=== PATIENT | female | born 1955 | race Caucasian/White ===

== ENCOUNTER → 2017-05-02 | Outpatient (CLI) | payer OTHER ==
[2017-05-02 13:03] LABS: URINE APPEARANCE CLEAR (CLEAR); URINE BILIRUBIN NEG (NEG); URINE COLOR YELLOW; URINE EPITHELIAL CELL AUTO 20-30 /lpf (0-5); URINE NITRITE NEG (NEG); URINE PH 5.5 (4.5-7.5); URINE SPECIFIC GRAVITY 1.021 (1.000-1.030); UROBILINOGEN NEG (NEG)
[2017-05-02 13:09] LABS: MANUAL MICROSCOPIC REQUIRED? NO; REVIEW REQ? NO
[2017-05-02 13:14] LABS: BLOOD UREA NITROGEN 29 mg/dl (7-18); BUN/CREATININE RATIO 26.4 (10-20); CALCIUM 9.2 mg/dl (8.5-10.1); CARBON DIOXIDE 21 mmol/L (21-32); CHLORIDE 106 mmol/L (98-107); GLUCOSE 256 mg/dl (70-99); POTASSIUM 4.7 mmol/L (3.5-5.1); SODIUM 137 mmol/L (136-145)
[2017-05-02 13:35] LABS: URINE PROTIEN/CREAT RATIO 4.9 (0-0.2); URINE TOTAL PROTEIN 207.2 mg/dl (0-11.9)
== END | disposition home or self-care (01) ==
LOC: C.LABMFLN 10:16
PROVIDERS: ATTEND Internal Medicine Nephrology
DX: I10 Essential (primary) hypertension (principal)

== ENCOUNTER → 2017-06-27 | Outpatient (CLI) | payer OTHER ==
[2017-06-27 14:01] LABS: ESTIMATED AVERAGE GLUCOSE 163 mg/dl; HA1C FLAG Normal (Normal)
[2017-06-27 14:28] LABS: ALT/SGPT 20 U/L (12-78); BLOOD UREA NITROGEN 31 mg/dl (7-18); BUN/CREATININE RATIO 28.1 (10-20); CALCIUM 9.2 mg/dl (8.5-10.1); CARBON DIOXIDE 20 mmol/L (21-32); CHLORIDE 111 mmol/L (98-107); CHOLESTEROL 145 mg/dl (0-200); GLUCOSE 135 mg/dl (70-99); POTASSIUM 5.4 mmol/L (3.5-5.1); SODIUM 139 mmol/L (136-145)
[2017-06-27 14:35] LABS: CHOLESTEROL/HDL RATIO 2.7; HDL CHOLESTEROL 54 mg/dl; TRIGLYCERIDES 168 mg/dl (0-150); VERY LOW DENSITY LIPOPROT CALC 34 mg/dl
== END | disposition home or self-care (01) ==
LOC: C.LABMFLN 07:05
PROVIDERS: ATTEND Family Medicine
DX: E11.9 Type 2 diabetes mellitus without complications (principal); I10 Essential (primary) hypertension

== ENCOUNTER → 2017-07-02 | Outpatient (CLI) | payer OTHER ==
--- NOTE | 2017-07-03 16:02 | MAMMOGRAPHY REPORT ---
BILATERAL DIGITAL SCREENING MAMMOGRAM TOMOSYNTHESIS WITH CAD: 07/02/2017 CLINICAL HISTORY: Routine screening. Patient has no complaints. TECHNIQUE: Breast tomosynthesis in addition to standard 2D mammography was performed. Current study was also evaluated with a Computer Aided Detection (CAD) system. COMPARISON: Comparison is made to exams dated: 06/27/2016 mammogram, 06/24/2015 mammogram, 06/22/2014 m ammogram, 06/15/2013 mammogram, 06/13/2012 mammogram, and 06/12/2011 mammogram - [facility] er. BREAST COMPOSITION: There are scattered areas of fibroglandular density in both breasts. FINDINGS: There are minimal vascular calcifications in the breasts. Stable asymmetry in the lateral right breast. No suspicious mass, architectural distortion or cluster of microcalcifications is seen . IMPRESSION: ACR BI-RADS CATEGORY 1: NEGATIVE There is no mammographic evidence of malignancy. A 1 year screening mammogram is recommended. The pa tient will receive written notification of the results. Approximately 10% of breast cancers are not detected with mammography. A negative mammographic report should not delay biopsy if a clinically suggestive mass is present. Bekah Anders M.D. ay/:07/02/2017 18:09:37 Circular Ripsaw Operator: Nishi MEIER(Nat)(Gerard)(PALOMA), [facility] letter sent: Normal 1/2 BI-RADS Code: ACR BI-RADS Category 1: Negative
== END | disposition home or self-care (01) ==
LOC: C.MAMM 10:18
PROVIDERS: ATTEND Family Medicine
DX: Z12.31 Encounter for screening mammogram for malignant neoplasm of breast (principal)

== ENCOUNTER → 2017-07-02 | Outpatient (CLI) | payer OTHER | END | disposition home or self-care (01) | LOC: C.LABMFLN 09:25 | PROVIDERS: ATTEND Family Medicine | DX: E87.5 Hyperkalemia (principal) ==

== ENCOUNTER → 2018-01-01 | Outpatient (CLI) | payer OTHER ==
[2018-01-01 13:10] LABS: ALBUMIN 3.4 gm/dl (3.4-5.0); ALT/SGPT 22 U/L (12-78); AST/SGOT 16 U/L (15-37); BLOOD UREA NITROGEN 31 mg/dl (7-18); CALCIUM 9.3 mg/dl (8.5-10.1); CARBON DIOXIDE 20 mmol/L (21-32); CREATININE 1.08 mg/dl (0.60-1.20); GLUCOSE 184 mg/dl (70-99); POTASSIUM 4.3 mmol/L (3.5-5.1); SODIUM 137 mmol/L (136-145)
[2018-01-01 13:16] LABS: ALKALINE PHOSPHATASE 62 U/L (45-117); CHOLESTEROL 142 mg/dl (0-200); HEMOGLOBIN A1C 7.2 % (4.5-5.6); LDL CHOLESTEROL CALCULATED 57 mg/dl; TOTAL PROTEIN 6.8 gm/dl (6.4-8.2)
== END | disposition home or self-care (01) ==
LOC: C.LABMFLN 06:59
PROVIDERS: ATTEND Family Medicine
DX: E11.9 Type 2 diabetes mellitus without complications (principal); M81.0 Age-related osteoporosis without current pathological fracture; I10 Essential (primary) hypertension; E11.21 Type 2 diabetes mellitus with diabetic nephropathy

== ENCOUNTER 2019-03-24 05:49 | Observation (INO) ==
[2019-03-24] MEDS ORDERED: LR 15ML/HR IV SCH (06:00)
[2019-03-24] MEDS ORDERED: CEFAZOLIN 1000MG 1,000 MG/7.5 ML SYR IV SCH (06:00)
[2019-03-24] MEDS ORDERED: LIDOCAINE HCL 1% 20 ML VIAL ONE (07:15)
[2019-03-24] MEDS ORDERED: BUPIVACAINE 0.25% 30 ML VIAL ONE (07:15)
[2019-03-24] MEDS ORDERED: CEFAZOLIN 2,000 MG/15 ML IV PUSH IV ONE (07:38)
[2019-03-24] MEDS ORDERED: fentaNYL citrate 100 MCG/2 ML VIAL ONE (07:54)
[2019-03-24] MEDS ORDERED: MIDAZOLAM HCL 5 MG/ML 1 ML VIAL ONE (07:55)
--- NOTE | 2019-03-24 08:10 | History & Physical Bridge Note ---
Date of Service March 24, 2019 History & Physical Bridge Note I have examined the patient, reviewed the History & Physical and in the interval since the performance of the History & Physical I have noted the following changes of clinical significance: no changes noted
--- NOTE | 2019-03-24 08:11 | Pre Anesthesia Assessment ---
Date of Service March 24, 2019 Pre Sedation Assessment Vital Signs Temp Pulse Resp BP Pulse Ox 03/24/19 06:51 37.1 C 70 18 164/82 H 18 L Cardiovascular RRR, no murmur, no edema Respiratory normal respiratory effort, lungs clear to auscultation Pre-Sedation Airway Assessment Smoking Status: Never smoker Hx Sleep Apnea: No Hx Difficult Intubation: No Short, Thick Neck: No Thyromental Distance: < 3.5 Finger Breadths ASA: ASA3 NPO Status Date of Last Intake of Fluids: 03/23/19 Date of Last Intake of Solid Food: 03/23/19 Procedure Planning Contraindications for Sedation: none Current Medications Reviewed: Yes Notes The planned sedation has been discussed with the patient. Informed Consent was obtained. I have identified the patient, determined the appropriateness of sedation and have assessed the patient immediately prior to the procedure. All medicine(s) and interventions are by my order.
[2019-03-24] MEDS ORDERED: CLINDAMYCIN 600 MG/54 ML BAG IV SCH (08:30)
[2019-03-24] MEDS ORDERED: ACETAMINOPHEN W/CODEINE #3 1 TAB PO PRN (09:50)
--- NOTE | 2019-03-24 09:50 | Post Anesthesia Assessment ---
Date of Service March 24, 2019 Post Sedation Assessment Vital Signs Temp Pulse Resp BP Pulse Ox 03/24/19 06:51 37.1 C 70 18 164/82 H 18 L Recovery Score Activity: Moves 4 extremities Respiration: Deep Breath/Cough Circulation: +/-20% PreAnes Value Consciousness: Fully Awake Oxygen Saturation: O2 needed for >90% Discharge Sedation Level of Care: Fast Track Phase II Post Sedation Plan On clinical assessment, the patient appears to have tolerated the sedation without complications. Patient is recovering as anticipated. Patient will continue to be monitored by nursing and may be discharged when sedation discharge criteria are met per below protocol. Upon Completions of procedure and additional 15 minutes continue every 5 minute vital signs and the P.A.R. score; then discharge to a Phase [facility] or [facility] per the following guidelines: * Discharge Patient to appropriate Phase II area if PAR is 8 or greater or return to pre- procedure baseline. The post - procedure orders will be as directed. * If PAR score is less than 8 or not return to pre-procedure baseline then patient will follow Phase I monitoring till PAR is reached for Phase II. The Phase I may be done in procedure room or may call to secure a Phase I area. * If naloxone or flumazenil are used for reversal, hold in Phase I for continued monitoring from when last reversal dose was given for a minimum of 60 minutes or longer pending the nurse and/or physician discretion of patient condition before discharge to Phase II. Please call the Sedation Physician to re-evaluate and complete post-note for discharge to Phase II area. Do NOT discharge from procedure sedation or Phase 1 until post- sedation evaluation note is complete by procedure /sedation MD Sedation Discharge Instructions to be given to the patient at discharge to home.
--- NOTE | 2019-03-24 09:50 | Operative Report ---
Post Operative Report Pre & Post Diagnosis ICM Operation Date: 03/24/19 08:00 <No data on this case meets the specified criteria> Procedure Operation Date: 03/24/19 08:00 Actual Procedures p ICD Implant - Melinda Vera DO Surgeon Melinda Vera, DO Supervisor Molding none Estimated Blood Loss 5 Findings Consistent with Post-Op Diagnosis Specimens none Description of Procedure see official report I attest to the content of the Intraoperative Record and any orders documented therein. Any exceptions are noted below.
[2019-03-24] MEDS: METFORMIN HCL 500 MG TAB PO SCH (17:03)
[2019-03-24] MEDS: CARVEDILOL 25 MG TAB PO SCH (19:32)
[2019-03-24] MEDS: OXYCODONE/ACETAMINOPHEN 5mg/325mg TAB PO PRN (21:22)
[2019-03-25] MEDS: OXYCODONE/ACETAMINOPHEN 5mg/325mg TAB PO PRN ×2 (03:41→10:36)
[2019-03-25] MEDS ORDERED: glipiZIDE 5 MG TAB PO SCH (07:30)
[2019-03-25] MEDS: METFORMIN HCL 500 MG TAB PO SCH (07:38)
--- NOTE | 2019-03-25 08:10 | XRay Report ---
XR chest 2V routine CLINICAL HISTORY: 63 years-old Female presenting with post implant. TECHNIQUE: PA and lateral views of the chest were obtained. COMPARISON: None. FINDINGS: Left subclavian implanted cardiac defibrillator with single lead to the right ventricular apex. The l ead appears appropriately positioned. No retained surgical material evident. Atherosclerosis of aortic arch. Cardiac silhouette moderately enlarged. Pulmonary vascular prominence and bronchial wall cuffing. Added central/perihilar density of the lungs without a focal infiltrate. No pleural effusion or pneumothorax. Osseous structures normal. Atherosclerosis in the upper abdomen . IMPRESSION: 1. Appropriately positioned at single lead ICD. No pneumothorax. 2. Cardiomegaly with volume overload and congestive change. No amber pulmonary edema at this time. Electronically signed by: Elvin Lynch M.D. 03/25/2019 8:08 AM
[2019-03-25] MEDS: CARVEDILOL 25 MG TAB PO SCH (08:42)
[2019-03-25] MEDS ORDERED: ASPIRIN 81 MG ECTAB PO SCH (09:00)
[2019-03-25] MEDS ORDERED: hydroCHLOROthiazide 25 MG TAB PO SCH (09:00)
[2019-03-25] MEDS ORDERED: ATORVASTATIN 40 MG TAB PO SCH (09:00)
[2019-03-25] MEDS ORDERED: VALSARTAN 80 MG TAB PO SCH (09:00)
[2019-03-25] MEDS ORDERED: MULTIVITAMIN TAB PO SCH (09:00)
[2019-03-25] MEDS ORDERED: FUROSEMIDE 40 MG TAB PO SCH (09:00)
[2019-03-25] MEDS ORDERED: OMEGA-3 (PURIFIED FISH OIL) 1 GM CAP PO SCH (09:00)
[2019-03-25] MEDS ORDERED: CLOPIDOGREL BISULFATE 75 MG TAB PO SCH (09:00)
[2019-03-25] MEDS ORDERED: CHOLECALCIFEROL 1,000 UNITS TAB PO SCH (09:00)
--- NOTE | 2019-03-25 21:56 | Operative Report ---
DATE OF OPERATION: 03/24/2019 PREOPERATIVE DIAGNOSIS: Ischemic cardiomyopathy. POSTOPERATIVE DIAGNOSIS: Ischemic cardiomyopathy. PROCEDURE: A single chamber rate responsive implantable cardiac defibrillator under fluoroscopic guidance. SURGEON: Melinda Vera DO CUTTING TOOL SHARPENER: None. ANESTHESIA: Monitored conscious sedation administered under my supervision by Beth Carvajal, start time 8:40, end time 9:45. Total of 4 mg of Versed, 100 mcg of fentanyl. INTRAVENOUS FLUIDS: 36 mL. ANTIBIOTICS: Clindamycin. BLOOD LOSS: 20 mL. URINE OUTPUT: Not applicable. SPECIMENS: None. FINDINGS: See below. DRAINS: None. INDICATIONS: This is a 63-year-old female with a past medical history for coronary artery disease where she had a STEMI in November of 2018. At the time of the cardiac catheterization, there was no intervention and there was no good targets for CABG, so she was medically managed, small pericardial effusion, circumferential less than 5 mL on a recent echo, hypertension, hyperlipidemia, diabetes, ischemic cardiomyopathy where her ejection fraction was 30% at the time of the STEMI and remains low and there was no intervention. So she was recommended a single chamber implantable cardiac defibrillator. CONSENT: Consent was obtained prior to the patient going into the electrophysiology lab. The patient was informed of the risks, benefits, and alternatives of the procedure. Risks include, but not limited to, sudden cardiac , cardiac arrhythmias, cerebrovascular accident, myocardial infarction, injury to the blood vessels, chamber of the heart, lung, bleeding, and infection. The patient understood these risks and agreed to the procedure as planned. Informed consent was obtained. DESCRIPTION OF THE PROCEDURE: The patient was brought into the electrophysiology lab in a fasting state. She was connected to continuous radiation monitor. A timeout was performed to ensure patient identity and procedure correctly. The patient was prepped and draped over the left infraclavicular space in normal surgical standard fashion. She received prophylactic antibiotics prior to incision. Monitored conscious sedation was given throughout the procedure for patient's comfort level. [place] precautions were maintained throughout the procedure. A 10 mL of 1% lidocaine and bupivacaine mixture were given in the left deltopectoral groove. Incision was made in left severe deltopectoral groove. Blunt dissection was performed down to identify the cephalic vein. The cephalic vein was identified and isolated using 0 silk ties. The vein was nicked with an 11 blade and a guidewire was inserted without any resistance and 9.5-Slovenian sheath was inserted over the guidewire without any resistance. The guidewire and dilator removed. The right ventricular defibrillator lead was then advanced into right ventricle and positioned into the right ventricular apex under fluoroscopic guidance. There was adequate pacing and sensing thresholds and no diaphragmatic stimulation with high output pacing. The 9.5-Slovenian sheath was peeled away and lead was fixated to pectoralis muscle using 0 silk suture. A defibrillator pocket was created using blunt dissection over the pectoralis muscle within the pectoral fascia. The pocket was flushed with copious amounts of bacitracin and saline wash and inspected for hemostasis. The defibrillator was then attached to the lead, making sure that the pins were in appropriate position, passed, set screws and set screws were all tightened. The pulse generator was then placed in the pocket, making sure that the leads were lying flat beneath the device. A stay stitch using 0 silk suture was used to secure the device to the pectoralis muscle. Leanne stat was placed in the pocket as patient is on some aspirin and then the incision was closed in a 3-layered fashion using 2-0 Vicryl interrupted suture followed by 3-0 Vicryl interrupted suture followed by 4-0 Monocryl running stitch and Dermabond was applied. EQUIPMENT: 1. Pulse generator is a [employer] AF MRI VR SureScan [id number], serial number [id number]. 2. Right ventricular lead, Medtronic 6935M-62 cm, serial number [id number]. INTRAOPERATIVE TESTING: Right ventricular lead, R waves 16.4 millivolts, impedance 437 ohms, threshold 1.2 volts at 0.4 milliamps. FINAL MEASUREMENTS THROUGH THE DEVICE: 1. Right ventricular lead, R waves 20 millivolts, impedance 475 ohms, threshold 0.75 volts at 0.4 milliseconds. 2. RV coil 63 ohms. FINAL PARAMETERS: VVI 40, right ventricular amplitude 3.5 volts, pulse width 0.4 milliseconds, sensitivity 0.3 millivolts. A VT monitor zone, 150 beats per minute for 32 detection intervals, a VT zone at 167 beats per minute for 16 detection intervals, and a VF zone at 200 beats per minute for 30/40 detection intervals. IMPRESSION: Successful implantation of single chamber rate responsive implantable cardiac defibrillator under fluoroscopic guidance secondary to ischemic cardiomyopathy. PLAN: Monitor patient overnight, 12-lead ECG, chest x-ray. She is not allowed to lift the left elbow or left shoulder for 1 month. She cannot lift more than 10 pounds with the left arm for 2 weeks. She can shower in 2 days, let water run over the incision, do not scrub it. She should follow up in our [place] device clinic in 1 week's time for device and wound check and she can continue all her home medications. I attest to the content of the Intraoperative Record and any orders documented therein. Any exception s are noted below.
[2019-03-29] MEDS ORDERED: ALENDRONATE SODIUM 70 MG TAB PO SCH (07:00)
--- NOTE | 2019-04-10 08:19 | Discharge Summary ---
Date of Service 03/24/2019- Admission HPI Pt admitted for elective ICD implant Admission Exam Per Admitting Provider aaox3, NAD NC/AT, EOMI Supple No JVD Nrl S1/S2, No murmur CTA b/l no w/r/r soft nt/nd no LE edema b/l skin intact no focal deficits Principal Diagnosis Principal Diagnosis ICM s/p ICD Discharge Exam aaox3, NAD NC/AT, EOMI Supple No JVD Nrl S1/S2, No murmur CTA b/l no w/r/r soft nt/nd no LE edema b/l skin intact no focal deficits left pectoral incision intact, no hematoma mild ecchymosis Respiratory normal respiratory effort, lungs clear to auscultation Cardiovascular RRR, no murmur, no edema Discharge Data Allergies Allergy/AdvReac Type Severity Reaction Status Date / Time Penicillins Allergy Intermediate Fever Verified 03/24/19 06:33 flu shot Allergy Uncoded 03/24/19 06:34 Procedures Performed ICD interrogation : Normal function ECG 03/25/2019: SR CXR 03/25/2109: No PTX leads in position Operation Date: 03/24/19 08:00 Actual Procedures p ICD Insertion Single or Dual - Melinda Vera DO Ordered Studies 03/24/19 06:45 EP Lab Images for PACS ONCE Hospital Course (1) Ischemic cardiomyopathy: Total Time Total Time Spent Total Time Spent (In Minutes): 30 Total Time Includes: Examination of the Patient, Discharge Planning, Medication Reconciliation and Other Discharge Plan Discharge Items Patient Disposition: Home - Self-Care Reason For Visit: icm Discharge Diagnosis: ICM s/p ICD Condition: Good Discharge Goals: Improve function Activity: As commented below Activity Comment: do not lift the left elbow over the left shoulder for 1 month Lifting: No more than 10 pounds Lifting Comment: do not lift more than 10 pounds with the left arm for 2 weeks Bathing: Keep incision dry Bathing Comment: can shower 03/26 let water run over the incision dont scrub it Sexual Activity: After two weeks Driving/Machine Use: Resume 3 days after discharge Non-emergency contact: Computer Network Engineer Call non-emergency contact if: you have any medication questions Follow-up/Referrals: Alex Mccoy MD [Primary Care Provider] - Diet: Heart Healthy and Low Sodium (2gm) Addtl Provider Instructions: if you notice any swelling call my office immediately device and wound check as scheduled next week Prescriptions: Continued aspirin [Aspir-81] 81 mg Tablet,Delayed Release (Dr/Ec) 1 mg PO DAILY RF: 0 atorvastatin 40 mg Tablet 40 mg PO DAILY RF: 0 carvedilol 25 mg Tablet 25 mg PO BID RF: 0 clopidogrel [Plavix] 75 mg Tablet 75 mg PO DAILY RF: 0 fluticasone propionate [Flonase Allergy Relief] 50 mcg/actuation [place],Suspension 2 spray intranasal RF: 0 cholecalciferol (vitamin D3) [Vitamin D3] 2,000 unit Capsule 2,000 unit PO DAILY RF: 0 omega 0-btl-gnh-fish oil [Fish Oil] 1,000 mg (120 mg-180 mg) Capsule 1 cap PO DAILY RF: 0 multivitamin Tablet 1 tab PO DAILY RF: 0 furosemide 40 mg Tablet 40 mg PO DAILY RF: 0 glipizide 5 mg Tablet Extended Release 24hr 5 mg PO DAILY RF: 0 metformin 1,000 mg Tablet 1,000 mg PO BID RF: 0 hydrochlorothiazide 25 mg Tablet 25 mg PO DAILY RF: 0 alendronate [Fosamax] 70 mg Tablet 70 mg PO WK RF: 0 valsartan 320 mg Tablet 320 mg PO DAILY RF: 0 Stand-Alone Forms: [facility] Discharge Orders: Discharge Order (Routine); Ordered 03/25/19 Ordered By: Melinda Vera Admission Data Admit Date/Time: 03/24/19 09:13 Attending Provider: Melinda Vera Admit Provider: Melinda Vera Primary Care Provider: Alex Mccoy Service: Telemetry Other Interventions: Discharge Summary Assessment (RN) Last Done: 03/25/19 10:28 DC Date/Time DO NOT enter until pt leaves facility: 03/25/19 10:59
== END 2019-03-25 10:59 | disposition home or self-care (01) ==
LOC: ASU 05:49 → 2E 05:49